=== PATIENT | female | born 1995 | race African-American/Black ===

== ENCOUNTER 2017-07-18 09:50 | Emergency (ER) | payer MEDICAID, OTHER ==
[~2017-07-18] VITALS: Ht 180.3 cm; Wt 127.0 kg
[~2017-07-18 09:50] MED LIST: ALBU6.7H INH; PRED20 PO; ZITH250T PO
--- NOTE | 2017-07-18 10:36 | PD ---
HPI Chief Complaint 22wk fall out of a bathtub Date Seen: Jul 18, 2017 Time Seen: 10:30 Travel History International Travel<30 Days: No Contact w/Intl Traveler<30Days: No Known Affected Area: No History of Present Illness HPI 22yo F 22wk presents to the OB ED s/p falling out the the bathtub this morning. Patient fell out of the tub and landed on her knee. Patient reports no abdominal pain and no vaginal bleeding or discharge. Patient was initially concerned because she noticed a small amount of blood when getting out of the bathtub but realized she had a small laceration on L 4th toe. Patient has reported a normal course thus far and has not had any complications. Patient was concerned about movement after her fall and had not felt him move s/p fall and that along with the possible blood brought her to the ED for evaluation. Patient denies n/v/d and is not currently on any medications. Weeks Gestation: 22 Para: 0 : 1 Last Menstrual Period: Feb 18, 2017 Miscarriage: 0 : 0 History Past Medical History Medical History: Denies Significant Hx Obstetric History Obstetric History 22 wks Past Surgical History Surgical History: No Previous Surgery Family History Family History: Negative Social History Alcohol Use: No Tobacco Use: No Substance Abuse: No Allergies-Medications (Allergen,Severity, Reaction): Coded Allergies: No Known Allergies (Unverified , 04/12/15) Home Meds Active Scripts Azithromycin (Zithromax Z-Isiah) 250 Mg Tab, 250 MG PO DIRECTED for 5 Days, TAB 500 MG (2 TABLETS) PO ON DAY 1, THEN 250 MG (1 TABLET) PO ON DAYS 2 TO 5. Prov:Shaka Shah MD 04/12/15 Albuterol Sulfate (Proventil Hfa) 6.7 Gm Aero, 2 PUFF INH Q4H, #1 BOX * SHAKE WELL BEFORE USE * Prov:Shaka Shah MD 04/12/15 Prednisone (Deltasone) 20 Mg Tab, 20 MG PO BID, #10 TAB Prov:Shaka Shah MD 04/12/15 Review of Systems Except as stated in HPI: all other systems reviewed are Neg Gastrointestinal: Abdominal Pain (initially a cramping pain, no longer present at time of evaluation.) Physical Exam HR: 98 BP: 127/72mmHg Narrative GENERAL: Well-nourished, well-developed patient. NAD sitting in bed with mother at bedside. SKIN: Warm and dry. HEAD: Normocephalic and atraumatic. CARDIOVASCULAR: Regular rate and rhythm without murmurs, gallops, or rubs. pulses equal bilaterally. RESPIRATORY: CTAB. Breath sounds equal bilaterally. No accessory muscle use. No rales, wheezes, or rhonchi. ABDOMEN/GI: Abdomen soft, non-tender, bowel sounds present, no rebound, no guarding Gravid to 23 weeks size FHT's: present in the 130s No contractions on CTG EXTREMITIES: No cyanosis or edema. NEUROLOGICAL: Awake and alert. CNII-XII intact. nonfocal. MDM Medical Record Reviewed: Yes Narrative Course / MDM Note prepared by SWAPNA Lopez records reviewed- labs normal. US with LILLIANA Impression: 22yo F 22wk with concerns of abdominal pain and movement s/p fall from bathtub. Initial concern for vaginal bleeding subsided after patient saw cut on her toe; she also urinated without any evidence of blood from vagina. Patient without contractions on CTG FHR 130's -Discussed with patient that the presence of heart tones, lack of contractions on CTG, and mechanism of injury are reassuring that patient does not have significant abdominal trauma. Patient counselled to keep her f/u appointment with her HAND TUBE BENDER but to return to OB immediately with any additional concerns for abdominal cramping, vaginal bleeding, or concerns for status Diagnosis Diagnosis: Primary Impression: Fall Additional Impressions: 22 weeks gestation of Abdominal pain affecting Disposition: 01 DISCHARGE HOME Condition: Stable Patient Instructions: General Instructions, Abdominal Pain in (ED), Movement (ED) Yousif Slade MD, R3 Jul 18, 2017 10:36
== END 2017-07-18 11:45 | disposition home or self-care (01) ==
LOC: HOBED 09:50
DX: O9A.212 Injury, poisoning and certain other consequences of external causes complicating pregnancy, second trimester (principal); S91.115A Laceration without foreign body of left lesser toe(s) without damage to nail, initial encounter; W18.2XXA Fall in (into) shower or empty bathtub, initial encounter; Z3A.22 22 weeks gestation of pregnancy
CPT/HCPCS: 99284

== ENCOUNTER → 2017-08-15 | Emergency (ER) | payer MEDICAID ==
--- NOTE | 2017-08-15 23:52 | PD ---
HPI Chief Complaint Pelvic pain Date Seen: Aug 15, 2017 Time Seen: 23:47 Travel History International Travel<30 Days: No Contact w/Intl Traveler<30Days: No Known Affected Area: No History of Present Illness HPI 22-year-old at 25 weeks gestation comes in complaining of pelvic discomfort and groin pain. She states that it started around 3 PM today and after she went home took a shower her pain has improved and is not present while she is here in the OB ED. Patient states she's had normal movement and denies any antepartum complications. Her OB provider is Dr. Rasheed at [facility]. Denies vaginal bleeding or discharge. Patient points to the area in her bilateral groin. Weeks Gestation: 25 Para: 0 : 1 History Past Medical History Medical History: Denies Significant Hx Past Surgical History Surgical History: No Previous Surgery Family History Family History: Negative Social History Alcohol Use: No Tobacco Use: No Substance Abuse: No Allergies-Medications (Allergen,Severity, Reaction): Coded Allergies: No Known Allergies (Unverified , 04/12/15) Home Meds Active Scripts Azithromycin (Zithromax Z-Isiah) 250 Mg Tab, 250 MG PO DIRECTED for 5 Days, TAB 500 MG (2 TABLETS) PO ON DAY 1, THEN 250 MG (1 TABLET) PO ON DAYS 2 TO 5. Prov:Shaka Shah MD 04/12/15 Albuterol Sulfate (Proventil Hfa) 6.7 Gm Aero, 2 PUFF INH Q4H, #1 BOX * SHAKE WELL BEFORE USE * Prov:Shaka Shah MD 04/12/15 Prednisone (Deltasone) 20 Mg Tab, 20 MG PO BID, #10 TAB Prov:Shaka Shah MD 04/12/15 Review of Systems Except as stated in HPI: all other systems reviewed are Neg Physical Exam Narrative GENERAL: Well-nourished, well-developed patient. SKIN: Warm and dry. HEAD: Normocephalic and atraumatic. EYES: No scleral icterus. No injection or drainage. ENT: No nasal drainage noted. Mucous membranes pink. Airway patent. NECK: Supple, trachea midline. No JVD. CARDIOVASCULAR: Regular rate and rhythm without murmurs, gallops, or rubs. RESPIRATORY: Breath sounds equal bilaterally. No accessory muscle use. ABDOMEN/GI: Abdomen soft, non-tender, bowel sounds present, no rebound, no guarding Gravid to [-25] weeks size Fundal Height: [-] GENITOURINARY: External Genitalia: intact and normal in appearance BUS glands: [-Normal] Cervix: [Posterior-] Dilatation: [-Closed] Effacement: [Long-] Station: [-High] Presentation: [-] Membranes: [intact or ruptured] intact Uterine Contractions: [-] Absent FHT's: Category: [-] 1 Baseline: [-] 140 Reactive: [-] Moderate Variability: [-] Moderate Decels: [-] Absent EXTREMITIES: No cyanosis or edema. BACK: Nontender without obvious deformity. No CVA tenderness. NEUROLOGICAL: Awake and alert. Motor and sensory grossly within normal limits. Five out of 5 muscle strength in all muscle groups. Normal speech. Data Data Vital Signs Reviewed: Yes MDM Medical Record Reviewed: Yes Plan 22-year-old at 25 weeks gestation with round ligament pain Return to OB provider Diagnosis Diagnosis: Primary Impression: 25 weeks gestation of Additional Impression: Pain of round ligament affecting , antepartum Disposition: 01 DISCHARGE HOME Natalya Ren MD Aug 15, 2017 23:52
== END | disposition home or self-care (01) ==
LOC: HOBED 23:13
DX: O26.892 Other specified pregnancy related conditions, second trimester (principal); R10.2 Pelvic and perineal pain; Z3A.25 25 weeks gestation of pregnancy
CPT/HCPCS: 80307; 99283; G0481